=== PATIENT | female | born 1980 | race Caucasian/White ===

== ENCOUNTER 2016-12-02 15:10 | Emergency (ER) | payer MEDICAID, OTHER ==
[2016-12-02 15:28] VITALS: BP 145/98
--- NOTE | 2016-12-02 17:32 | RAD ---
INDICATION: Back pain. Dysuria. COMPARISON: Pelvic sonogram September 07, 2015 TECHNIQUE: Noncontrast axial source images were acquired from the level hemidiaphragms to the symphysis pubis as part of CT imaging for renal stone. Lung bases: The lung bases are clear. Liver: The liver is normal in size. Noncontrast imaging shows no evidence of a hepatic mass or ductal dilatation. Gallbladder: There are no calcified gallstones. There is no evidence of wall thickening or pericholecystic fluid.. Spleen: The spleen is normal in size. The noncontrast CT appearance is normal. Pancreas: Noncontrast imaging shows no pancreatic mass or ductal dilitation. Adrenal glands: No masses are identified. Kidneys/Bladder: There is no evidence of nephrolithiasis or CT evidence of hydronephrosis. Noncontrast imaging shows no evidence of a renal mass. The bladder is unremarkable.. Adenopathy: There is no evidence of intraperitoneal or retroperitoneal adenopathy. Evaluation is limited without oral contrast. Fluid collections: There are no free or localized fluid collections. Vessels: The aorta and iliac vessels are normal in caliber. There are no significant atherosclerotic changes. The IVC appears normal Pelvic organs: There is a fibroid uterus with a dominant, calcified, anterior body fibroid. This is been documented on prior ultrasonography. There is an IUD There is no adnexal mass. GI tract: Evaluation of the bowel is limited without oral contrast. The stomach, small bowel, and lower GI tract appear grossly normal. There are no obstructive findings. The appendix is visualized and appears normal. Soft tissues: No soft tissue abnormalities of the extraperitoneal abdomen or pelvis are identified. Osseous structures: There are no acute osseous findings. IMPRESSION: NO CT EVIDENCE OF UROLITHIASIS. FIBROID UTERUS.
[2016-12-02] MEDS ORDERED: Ciprofloxacin TAB* 500 MG PO ONE ×2 (18:46→18:56)
[2016-12-02] MEDS ORDERED: HYDROcodone/ACETAMIN 5-325 MG* 1 TAB PO ONE (18:56)
--- NOTE | 2016-12-02 21:59 | UC ---
Porsche Santa Michael, scribed for Hoda Jarvis DO on 12/02/16 at 1707 . Complaint Female HPI - HPI Summary HPI Summary: 36 y/o presents with intermittent right lower back pain that started one day ago. The pt describes the back pain as sharp and throbbing and has worsened today at 1430. She states that, at it's worse, the pain was an 8 out of 10, and currently rated a 5 out of 10. The back pain radiates to the left side and down the RLE. The pt reports that heat alleviates the back pain. She also c/o MENDOZA, fever, chills, myalgia, nausea, SOB, and dysuria. At the ED, her temperature was 101.3, and she notes her urine had a bad odor. The pt denies increased urination frequency and hematuria. The PMHx is significant for UTI. Her last UTI was 2 years ago. In July, the pt had a baby and a leep procedure 1.5 weeks ago. - History Of Current Complaint Chief Complaint: UCGU Stated Complaint: BACK PAIN, AND FREQUENT URINATION Time Seen by Provider: 12/02/16 15:33 Hx Obtained From: Patient, Medical Records Hx Last Menstrual Period: Currently menstruating ?: No Onset/Duration: Lasting Days, Still Present, Worse Since - 1430 today Timing: Intermittent Severity Initially: Moderate Severity Currently: Mild Pain Intensity: 5 Pain Scale Used: 0-10 Numeric Character: Sharp - throbbing Aggravating Factor(s): Nothing Associated Signs And Symptoms: Positive: Fever - chills. dysuria. SOB. myalgia. MENDOZA, Back Pain, Vaginal Bleeding/Discharge - mensus, Nausea. Negative: Vaginal Discharge, Vomiting(# Of Episodes =) - Allergies/Home Medications Allergies/Adverse Reactions: Allergies Allergy/AdvReac Type Severity Reaction Status Date / Time No Known Allergies Allergy Verified 08/13/16 12:06 Home Medications: Home Medications Ibuprofen TAB* [Advil TAB*] 4 tab PO Q6HR 12/02/16 [History Confirmed 12/02/16] PMH/Surg Hx/FS Hx/Imm Hx - Additional Past Medical History Additional PMH: UTI Endocrine History Of: Denies: Diabetes, Thyroid Disease Cardiovascular History Of: Reports: Cardiac Disorders - was worked up while in college 2003 Denies: Hypertension Respiratory History Of: Denies: COPD, Asthma GI/ History Of: Denies: Ulcer - Surgical History Surgical History: Yes Surgery Procedure, Year, and Place: Leep procedure - Family History Known Family History: Negative: Cardiac Disease, Hypertension, Diabetes - Social History Occupation: Employed Full-time Lives: With Family Alcohol Use: Occasionally Substance Use Type: None Smoking Status (MU): Never Smoked Tobacco Have You Smoked in the Last Year: No - Immunization History Most Recent Influenza Vaccination: 2015/2016 season Review of Systems Constitutional: Fever, Chills Skin: Negative Eyes: Negative ENT: Negative Respiratory: Shortness Of Breath Cardiovascular: Negative Gastrointestinal: Other - nausea Genitourinary: Dysuria Motor: Negative Neurovascular: Negative Musculoskeletal: Myalgia, Other: - back pain Neurological: Headache Psychological: Negative All Other Systems Reviewed And Are Negative: Yes Physical Exam Triage Information Reviewed: Yes Appearance: Well-Appearing, No Pain Distress, Well-Nourished Vital Signs: Initial Vital Signs Temp 101.3 F 12/02/16 15:17 Pulse 107 12/02/16 15:17 Resp 18 12/02/16 15:17 BP 145/98 12/02/16 15:17 Pulse Ox 100 12/02/16 15:17 Vital Signs Reviewed: Yes Eyes: Positive: Conjunctiva Clear. Negative: Discharge ENT: Positive: Hearing grossly normal. Negative: Muffled/hoarse voice Neck: Positive: Supple, Nontender Respiratory: Positive: Lungs clear, Normal breath sounds, No respiratory distress, No accessory muscle use Cardiovascular: Positive: No Murmur, Tachycardia Abdomen Description: Positive: Nontender, Soft, CVA Tenderness (R). Negative: Distended, Guarding Musculoskeletal Exam: Normal Neurological: Positive: Muscle Tone Normal Psychological: Positive: Age Appropriate Behavior Skin Exam: Normal - dry. warm. nml color. Diagnostics - Radiology CT Abd/Pel Xray Interpretation: Positive (See Comments) - NO CT EVIDENCE OF UROLITHIASIS. FIBROID UTERUS. Radiology Interpretation Completed By: Radiologist Complaint Female Dx - Course Course Of Treatment: pt will reveive 1 hydrocodone tonight and 2 tomorrow. - Differential Dx/Diagnosis Differential Diagnosis/HQI/PQRI: , Renal Colic, Ureteral Stone, Urinary Tract Infection Provider Diagnoses: uti, hematuria Discharge - Discharge Plan Condition: Stable Disposition: HOME Prescriptions: Ciprofloxacin HCl [Cipro] 500 mg PO BID #8 tab HYDROcodone/ACETAMIN 5-325 MG* [[facility] 5-325 TAB*] 1 tab PO Q6H PRN #3 tab MDD 4 TABS PRN Reason: Pain Patient Education Materials: Urinary Tract Infection in Women (ED), Hematuria ( ED) Referrals: Jaki Gordon CNM [Certified Nurse Senior Cyber Intelligence Analyst] - Additional Instructions: CIPROFLOXACIN: You have been given a new antibacterial agent, ciprofloxacin (Cipro). This medicine is not related to the penicillins, sulfas, cephalosporins, or tetracyclines. It is often given to patients who are allergic to these drugs. It has been chosen for you either because other drugs are not appropriate, or because of the nature of your problem. Cipro should not be taken with antacids, as these can decrease its effectiveness. It can be taken without regard to meals. CIPRO SHOULD NOT BE TAKEN BY CHILDREN, NURSING WOMEN, OR WOMEN. Although Cipro is usually well-tolerated, common side effects can include nausea and diarrhea. Contact your doctor if you experience any unusual symptoms while on this medication, such as joint pain or swelling, shortness of breath, wheezing, faintness, or hives. ANY TIME YOU TAKE AN ANTIBIOTIC, IT IS IMPORTANT TO REPLENISH THE BODY'S BALANCE OF "GOOD" BACTERIA BY EATING HIGH QUALITY CULTURED FOOD SUCH YOGURT, SAURKRAUT OR WENDY CHI AND/OR TAKING A PROBIOTIC SUPPLEMENT. ORAL NARCOTIC MEDICATION: You have been given a prescription for pain control. This medication is a narcotic. It's best taken with food, as nausea can result if taken on an empty stomach. Don't operate machinery or drive within six hours of taking this medication. Do not combine this medicine with alcohol, or with any medication which can cause sedation (such as cold tablets or sleeping pills) unless you get permission from the physician. Narcotics tend to cause constipation. If possible, drink plenty of fluids and eat a diet high in fiber and fruits. FOLLOW-UP CARE: You should establish with a private physician for follow-up care. If you are unable to get a timely appointment, or if you are worsening, call us or return for re-evaluation. An additional resource available to assist in finding the appropriate physician for your health care needs is the [facility]ician Referral Center. You may contact them by calling [phone]. FOLLOW UP IN 2 DAYS IF NOT IMPROVING. OTHERWISE FOLLOW UP IN 2 WEEKS. The documentation as recorded by the [email or web address] Michael accurately reflects the service I personally performed and the decisions made by , Hoda Jarvis DO.
== END 2016-12-02 19:00 | disposition home or self-care (01) ==
LOC: UCEAST 15:10
DX: N39.0 Urinary tract infection, site not specified (principal); R31.9 Hematuria, unspecified; Z32.02 Encounter for pregnancy test, result negative; D25.9 Leiomyoma of uterus, unspecified
CPT/HCPCS: 74176; 81003; 84702; 87077; 87086; 87186; 99212; A9270-GY; G0463

== ENCOUNTER 2017-11-09 13:36 | Emergency (ER) | payer OTHER ==
[2017-11-09 15:00] LABS: ABS Basophils 0 10^3/ul (0-0.2); ABS Eosinophils 0.1 10^3/ul (0-0.6); ABS Monocytes 0.2 10^3/ul (0-0.8); ABS Neutrophils 4.9 10^3/ul (1.5-7.7); ABS Nucleated RBC 0 10^3/ul; Eosinophil % 1.8 % (0-6); Hematocrit 39 % (35-47); Lymphocyte % 16.1 % (25-47); Mean Corpuscular HGB Conc 34 g/dl (31-36); Mean Corpuscular Hemoglobin 30 pg (27-31); Mean Corpuscular Volume 90 fL (80-97); Mean Platelet Volume 9 um3 (7.4-10.4); Nucleated Red Blood Cells % 0; Platelet Count 222 10^3/ul (150-450); Red Blood Count 4.32 10^6/ul (4.0-5.4); Red Cell Distribution Width 12 % (10.5-15); White Blood Count 6.3 10^3/ul (3.5-10.8)
[2017-11-09 15:21] LABS: EGFR Non-African American 94.7 (>60)
--- NOTE | 2017-11-09 15:25 | RAD ---
INDICATION: Chest pain COMPARISON: None TECHNIQUE: PA and lateral dual-energy views were obtained. FINDINGS: Bones/Soft Tissues: There are no acute bony findings. Cardiomediastinal: The cardiomediastinal silhouette is normal. Lungs: There are no infiltrates. Pleura: There are no pleural effusions. Other: None IMPRESSION: NO ACTIVE DISEASE.
[2017-11-09 18:42] VITALS: BP 125/93
--- NOTE | 2017-11-09 21:25 | ED ---
Vladimir Santa Jennifer, scribed for Zain Batista MD on 11/09/17 at 1739 . HPI Chest Pain - HPI Summary HPI Summary: The patient is a 37 year old female who presents with intense chest pain for a couple of days. She explains that she had a spell of chest pain about 13 years ago that went away. The patient describes the pain as pressure and aching and explains that it comes and goes in intensity but never completely goes away. She adds that there was shortness of breath in the beginning but not in the ED today. The patient reports that she has increased frequency of headaches. She denies pain when breathing and swelling of the legs. - History of Current Complaint Chief Complaint: EDChestPainROMI Time Seen by Provider: 11/09/17 17:17 Hx Obtained From: Patient Hx Last Menstrual Period: Currently menstruating Onset/Duration: Started Days Ago - couple days, Still Present Timing: Constant, Intermittent - Comes and goes in intensity but the pain is always there Initial Severity: Moderate Current Severity: Moderate Pain Intensity: 7 Pain Scale Used: 0-10 Numeric Chest Pain Radiates: No Character: Other: - Pressure, Aching Aggravating Factor(s): Nothing Alleviating Factor(s): Nothing Associated Signs and Symptoms: Positive: Other: - shortness of breath, increased headache frequency. 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 Negative: Other - Pain when breathing Negative: Edema Positive: Headache All Other Systems Reviewed And Are Negative: Yes Physical Exam - Summary Physical Exam Summary: Appearance: The patient is well-nourished in no acute distress and in no acute pain. Skin: The skin is warm and dry and skin color reflects adequate perfusion. HEENT: ~The head is normocephalic and atraumatic. The pupils are equal and reactive. The conjunctivae are clear and without drainage. ~Nares are patent and without drainage. ~Mouth reveals moist mucous membranes and the throat is without erythema and exudate. ~The external ears are intact. The ear canals are patent and without drainage. The tympanic membranes are intact. Neck: the neck is supple with full range of motion and non-tender. There are no carotid bruits. ~There is no neck vein distension. Respiratory: Chest is non-tender. ~Lungs are clear to auscultation and breath sounds are symmetrical and equal. Cardiovascular: Heart is regular rate and rhythm. ~There is no murmur or rub auscultated. ~~There is no peripheral edema and pulses are symmetrical and equal. Abdomen: The abdomen is soft and non-tender. ~There are normal bowel sounds heard in all four quadrants and there is no organomegaly palpated. Musculoskeletal: There is no back tenderness noted. ~Extremities are non-tender with full range of motion. ~There is good capillary refill. ~There is no peripheral edema or calf tenderness elicited. Neurological: Patient is alert and oriented to person, place and time. ~The patient has symmetrical motor strength in all four extremities. ~Cranial nerves are grossly intact. Deep tendon reflexes are symmetrical and equal in all four extremities. Psychiatric: The patient has an appropriate affect and does not exhibit any anxiety or depression. Triage Information Reviewed: Yes Vital Signs On Initial Exam: Initial Vitals Temp Pulse Resp BP Pulse Ox 98.5 F 110 18 130/86 99 11/09/17 13:41 11/09/17 13:41 11/09/17 13:41 11/09/17 13:41 11/09/17 13:41 Vital Signs Reviewed: Yes Diagnostics - Vital Signs Vital Signs Temp Pulse Resp BP Pulse Ox 11/09/17 17:01 83 99 11/09/17 17:00 148/78 11/09/17 15:15 98 F 87 17 124/64 100 11/09/17 13:41 98.5 F 110 18 130/86 99 - Laboratory Lab Results: Lab Results 11/09/17 11/09/17 11/09/17 Range/Units 14:36 14:36 14:36 WBC 6.3 (3.5-10.8) 10^3/ul RBC 4.32 (4.0-5.4) 10^6/ul Hgb 13.0 (12.0-16.0) g/dl Hct 39 (35-47) % MCV 90 (80-97) fL MCH 30 (27-31) pg MCHC 34 (31-36) g/dl RDW 12 (10.5-15) % Plt Count 222 (150-450) 10^3/ul MPV 9 (7.4-10.4) um3 Neut % (Auto) 77.9 (38-83) % Lymph % (Auto) 16.1 L (25-47) % [place] % (Auto) 3.7 (1-9) % Eos % (Auto) 1.8 (0-6) % Baso % (Auto) 0.5 (0-2) % Absolute Neuts (auto) 4.9 (1.5-7.7) 10^3/ul Absolute Lymphs (auto) 1.0 (1.0-4.8) 10^3/ul Absolute Monos (auto) 0.2 (0-0.8) 10^3/ul Absolute Eos (auto) 0.1 (0-0.6) 10^3/ul Absolute Basos (auto) 0 (0-0.2) 10^3/ul Absolute Nucleated RBC 0 10^3/ul Nucleated RBC % 0 Sodium 138 (133-145) mmol/L Potassium 4.2 (3.5-5.0) mmol/L Chloride 103 (101-111) mmol/L Carbon Dioxide 31 (22-32) mmol/L Anion Gap 4 (2-11) mmol/L BUN 9 (6-24) mg/dL Creatinine 0.70 (0.51-0.95) mg/dL Est GFR ( Amer) 121.8 (>60) Est GFR (Non-Af Amer) 94.7 (>60) BUN/Creatinine Ratio 12.9 (8-20) Glucose 95 (70-100) mg/dL Lactic Acid 1.4 (0.5-2.0) mmol/L Calcium 9.2 (8.6-10.3) mg/dL Total Bilirubin 0.60 (0.2-1.0) mg/dL AST 15 (13-39) U/L ALT 11 (7-52) U/L Alkaline Phosphatase 58 (34-104) U/L Troponin I 0.00 (<0.04) ng/mL Total Protein 6.7 (6.4-8.9) g/dL Albumin 4.2 (3.2-5.2) g/dL Globulin 2.5 (2-4) g/dL Albumin/Globulin Ratio 1.7 (1-3) Result Diagrams: 11/09/17 14:36 11/09/17 14:36 Lab Statement: Any lab studies that have been ordered have been reviewed, and results considered in the medical decision making process. - Radiology CXR Xray Interpretation: No Acute Changes - NO ACTIVE DISEASE. Dr. Batista has reviewed this report. Radiology Interpretation Completed By: Radiologist - EKG 13:44 Cardiac Rate: NL EKG Rhythm: Sinus Rhythm - 95 BPM Chest Pain Course/Dx - Course Course Of Treatment: Ms. Valles presented with an atypical chest pain that was accompanied by a slight SOB and has been intermittent for many days. Her W/U including a troponin and a d-dimer was negative and I recommended PMD F/U. - Diagnoses Provider Diagnoses: Chest pain Discharge - Discharge Plan Condition: Stable Disposition: HOME Patient Education Materials: Chest Pain (ED) Referrals: Kathleen Seymour MD [Primary Care Provider] - 3 Days Additional Instructions: Follow up with your primary care physician in three days. Return to the emergency department for any new or worsening symptoms. The documentation as recorded by the Vladimir kennedy Jennifer accurately reflects the service I personally performed and the decisions made by me, Zain Batista MD.
== END 2017-11-09 18:57 | disposition home or self-care (01) ==
LOC: ED 13:36
DX: R07.89 Other chest pain (principal)
CPT/HCPCS: 36415; 71046; 80053; 83605; 84484; 85025; 85379; 93005; 99282